=== PATIENT | male | born 1975 | race Two or more races ===

== ENCOUNTER 2022-05-11 13:37 | Emergency (ER) | payer MEDICAID ==
[~2022-05-11] VITALS: Ht 165.1 cm; Wt 74.8 kg
[2022-05-11 13:52] VITALS: BP 137/82
--- NOTE | 2022-05-11 13:52 | NUR ---
TO ER BED 2. BIBS C/O RIGHT SHOULDER PAIN S/P GLF YESTERDAY. PAIN IS 5/10 ON PAIN SCALE. AWAITING MD ORDERS.
[2022-05-11] MEDS ORDERED: IBUP-1955 PO (14:53)
== END 2022-05-11 15:02 | disposition home or self-care (01) ==
LOC: ER 13:40
DX: S49.91XA Unspecified injury of right shoulder and upper arm, initial encounter (principal); Z60.2 Problems related to living alone; W18.30XA Fall on same level, unspecified, initial encounter; Y93.89 Activity, other specified; Y92.89 Other specified places as the place of occurrence of the external cause; Y99.8 Other external cause status
CPT/HCPCS: 73030-TC